=== PATIENT | male | born 1940 | race Caucasian/White ===

== ENCOUNTER 2018-08-03 09:10 | Inpatient (IN) | payer MEDICARE ==
[2018-08-03 09:56] LABS: #Eosinphils 0.4 thou/uL (0.0-0.7); #Lymphocytes 2.3 thou/uL (1.20-3.40); #Neutrophils 7.7 thou/uL (1.40-6.50); %Basophils 0.4 % (0.0-1.0); %Eosinophils 3.5 % (0.0-10.0); %Lymphocytes 20.3 % (21.0-51.0); %Monocytes 8.5 % (0.0-10.0); %Neutrophils 67.4 % (42.0-75.0); Mean Corpuscular Volume 81.1 fL (78.0-98.0); Platelet Count 170 thou/uL (130-400); RBC Distribution Width 16.6 % (11.5-14.5); White Blood Cell (WBC) Count 11.4 thou/uL (4.8-10.8)
[2018-08-03 10:14] LABS: ALT (SGPT) 18 U/L (8-55); AST (SGOT) 25 U/L (5-34); Albumin 3.5 g/dL (3.4-4.8); Alkaline Phosphatase 82 U/L (40-150); Anion Gap 14 mmol/L (10-20); BUN (Urea Nitrogen) 23 mg/dL (8.4-25.7); Calc. Creatinine Clearance 0 mL/min (70-130); Calcium 9.2 mg/dL (7.8-10.44); Carbon Dioxide 26 mmol/L (23-31); Chloride 101 mmol/L (98-107); Estimated GFR-MDRD Greater than 90; Globulin 4.3 g/dL (2.4-3.5); Glucose 89 mg/dL (83-110); Potassium 3.8 mmol/L (3.5-5.1); Protein, Total 7.8 g/dL (5.8-8.1); Sodium 137 mmol/L (136-145)
--- NOTE | 2018-08-03 10:32 | RAD ---
FRONTAL VIEW CHEST: Comparison: 08-09-17 Clinical indication: Dyspnea, shortness of breath. FINDINGS: There is enlargement of the cardiac silhouette and pulmonary vasculature. Mild pleural based density at the inferior right chest may be related to small amount of pleural fluid. Dual-lead left subclavia n approach cardiac device again seen. IMPRESSION: 1. Evidence of CHF. 2. Small right pleural effusion. 3. Recommend follow up to resultion. POS: SOFIA
[2018-08-03 10:34] LABS: CKMB 1.7 ng/mL (0-6.6)
[2018-08-03] MEDS ORDERED: Furosemide 40 MG/4 ML VIAL ONE (10:57)
[2018-08-03] MEDS ORDERED: Aspirin 325 MG TAB ONE (10:57)
[2018-08-03 12:47] LABS: Troponin I 0.033 ng/mL (< 0.028)
[2018-08-03 14:03] VITALS: BMI 32.8
[2018-08-03] MEDS ORDERED: Acetaminophen 325 MG TAB PO PRN (15:11)
[2018-08-03] MEDS ORDERED: Dextrose 50% Abboject 50 ML SYRINGE SLOW IVP PRN (15:11)
[2018-08-03] MEDS ORDERED: Dextrose 5% in Water 1,000 ML IV PRN (15:11)
[2018-08-03] MEDS ORDERED: Ondansetron ODT 4 MG TAB PO PRN (15:11)
[2018-08-03] MEDS ORDERED: Insulin Regular 300 UNITS/3 ML VIAL SC PRN (15:11)
[2018-08-03] MEDS ORDERED: Bisacodyl 5 MG TAB PO PRN (15:20)
[2018-08-03 15:27] LABS: Troponin I 0.032 ng/mL (< 0.028)
[2018-08-03] MEDS ORDERED: Meclizine HCl 25 MG TAB PO SCH (16:00)
[2018-08-03] MEDS: Insulin Regular 300 UNITS/3 ML VIAL SC SCH (17:03)
[2018-08-03] MEDS: Famotidine 20 MG TAB PO SCH (20:55)
[2018-08-03] MEDS: Docusate 100 MG CAP PO SCH (20:56)
[2018-08-03] MEDS ORDERED: Digoxin 0.125 MG TAB PO SCH (21:00)
[2018-08-03] MEDS: Insulin Glargine 80 UNITS in Pre-Filled Syringe 1 EACH SC SCH (21:05)
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
--- NOTE | 2018-08-04 02:06 | CON ---
DATE OF CONSULTATION: 08/03/2018 REASON FOR CONSULTATION: Congestive heart failure. HISTORY OF PRESENT ILLNESS: Mr. Johnson is a 78-year-old gentleman with history of pacemaker insertion and apparently atrial fibrillation. I have been consulted for heart failure. Mr. Johnson states that many years ago, he had syncopal episodes and was found to have periods of asystole. He underwent pacemaker insertion. A couple of years ago, he was re-evaluated and was found have normal left ventricular function on echocardiogram and had a pacemaker generator change. He has done well since then up until the last few weeks he has been progressively short of breath and difficulty sleeping at night due to difficulty breathing and to sit up to breathe. Finally came to the hospital, where he was found to be in heart failure. He has received diuretics and is feeling much better already. HOME MEDICATIONS: 1. Triamterene hydrochlorothiazide. 2. Diltiazem CD 180 mg a day. 3. Digoxin 0.125 mg a day. 4. Pradaxa. Per report, taking 110 mg capsules 2 a day in the morning. 5. Insulin. ALLERGIES: NIACIN. SOCIAL HISTORY: No alcohol or tobacco. PAST MEDICAL HISTORY: History of polio as a child. 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 Still able to exert, but unable to exert himself as heavily and unable to compete like he could before. Other past history, diabetes. PHYSICAL EXAMINATION: GENERAL: This is a pleasant elderly gentleman, in no distress. VITAL SIGNS: Blood pressure 140/64, pulse 70, it is regular. EYES: Sclerae nonicteric. MOUTH: Mucous membranes moist. NECK: Supple. No lymphadenopathy. LUNGS: Clear. No wheezing, rales, or rhonchi. CARDIAC: Normal S1, normal S2. There is no murmur, rub, or gallop. ABDOMEN: Soft, nontender. EXTREMITIES: No clubbing or cyanosis, but he has some moderate peripheral edema that is chronic. He has good femoral pulse. PERTINENT LABORATORY DATA: BNP was up slightly 138.5. Troponin is indeterminate at 0.032. Hemoglobin 13. Chest x-ray revealed cardiomegaly with pulmonary vascular congestion. There is a dual lead pacemaker. EKG shows ventricular pacing primarily with occasional atrial pacing, but it is difficult to tell this may all be atrial fibrillation. ASSESSMENT: 1. Congestive heart failure. Unknown if it is systolic or diastolic yet, maybe systolic with a diastolic component mixed. 2. Previous pacemaker insertion. 3. Previous polio. 4. Diabetes. PLAN: 1. Change from diltiazem to carvedilol. 2. Interrogate the pacemaker. 3. Add GWENDOLYN inhibitor. 4. He is on diuretics. 5. Will likely need cardiac catheterization in this admission. We will follow with you. Job ID: [id number]
[2018-08-04 05:33] LABS: #Eosinphils 0.4 thou/uL (0.0-0.7); #Monocytes 1.1 thou/uL (0.11-0.59); #Neutrophils 7.3 thou/uL (1.40-6.50); %Basophils 0.2 % (0.0-1.0); %Eosinophils 3.3 % (0.0-10.0); %Lymphocytes 18.6 % (21.0-51.0); %Monocytes 10.5 % (0.0-10.0); %Neutrophils 67.4 % (42.0-75.0); Hemoglobin 12.4 g/dL (14.0-18.0); Mean Corpuscular HGB CONC 32.4 g/dL (32.0-36.0); Mean Corpuscular Hemoglobin 26.2 pg (27.0-31.0); Mean Corpuscular Volume 80.8 fL (78.0-98.0); Mean Platelet Volume 7.8 fL (7.4-10.4); Platelet Count 179 thou/uL (130-400); RBC Distribution Width 16.4 % (11.5-14.5); Red Blood Cell (RBC) Count 4.73 mill/uL (4.70-6.10); White Blood Cell (WBC) Count 10.9 thou/uL (4.8-10.8)
[2018-08-04 05:38] LABS: INR-International Normal Ratio 1.3; PTT 44.8 SEC (22.9-36.1); Prothrombin Time 16.3 SEC (12.0-14.7)
[2018-08-04 05:54] LABS: Anion Gap 12 mmol/L (10-20); BUN (Urea Nitrogen) 20 mg/dL (8.4-25.7); Calc. Creatinine Clearance 112 mL/min (70-130); Calcium 9.1 mg/dL (7.8-10.44); Carbon Dioxide 29 mmol/L (23-31); Chloride 101 mmol/L (98-107); Estimated GFR-MDRD Greater than 90; Glucose 72 mg/dL (83-110); Potassium 3.4 mmol/L (3.5-5.1); Sodium 139 mmol/L (136-145)
--- NOTE | 2018-08-04 07:22 | PDOC.PN ---
- Subjective Encounter Start Date: 08/04/18 Encounter Start Time: 14:00 Subjective: Patient reports no more SOB. No orthopnea. Ambulating well. - Objective Resuscitation Status - Order Detail: 08/03/18 15:01 Resuscitation Status Routine Resuscitation Status: FULL: Full Resuscitation Discussed with: Patient MOMO Reviewed: Yes Vital Signs & Weight: Vital Signs (12 hours) Temp Pulse Resp BP Pulse Ox 08/04/18 04:00 97.9 F 69 20 133/60 93 L 08/04/18 00:00 98.9 F 70 18 154/67 H 95 08/03/18 20:55 84 08/03/18 20:00 98.7 F 74 19 131/60 95 Weight Weight 229 lb 14.4 oz I&O: 08/03/18 08/04/18 08/05/18 06:59 06:59 06:59 Intake Total 690 Output Total 1615 Balance -925 Result Diagrams: 08/04/18 05:15 08/04/18 05:15 Additional Labs: Accuchecks 08/04/18 06:03 POC Glucose 111 H Phys Exam - Physical Examination Constitutional: NAD HEENT: moist MMs Respiratory: no wheezing, no rhonchi mild bibasilar rales Cardiovascular: RRR, no significant murmur Gastrointestinal: soft, positive bowel sounds Musculoskeletal: edema present minimal edema Neurological: non-focal, moves all 4 limbs Psychiatric: normal affect, A&O x 3 Dx/Plan (1) New onset of congestive heart failure Code(s): I50.9 - HEART FAILURE, UNSPECIFIED Status: Acute Comment: ECHO pending, Dr. Reyez consulted, adding Coreg, GWENDOLYN-I, and IV Lasix. Possible cath depending on the ECHO results. (2) Atrial fibrillation Code(s): I48.91 - UNSPECIFIED ATRIAL FIBRILLATION Status: Chronic Comment: on Pradaxa (3) Complete heart block Code(s): I44.2 - ATRIOVENTRICULAR BLOCK, COMPLETE Status: Chronic Comment: previous pacemaker insertion (4) Diabetes mellitus, insulin dependent (IDDM), controlled Code(s): E11.9 - TYPE 2 DIABETES MELLITUS WITHOUT COMPLICATIONS; Z79.4 - JAIL (CURRENT) USE OF INSULIN Status: Chronic Comment: on large amounts of Lantus and short acting insulin twice per day - Plan cont current plan of care Appreciate Dr. Reyez's imput on this patient * . - Discharge Day Encounter end time: 14:20
[2018-08-04] MEDS: Insulin Regular 300 UNITS/3 ML VIAL SC SCH ×2 (08:06→16:06)
[2018-08-04] MEDS: Folic Acid 1 MG TAB PO SCH (08:07)
[2018-08-04] MEDS: Famotidine 20 MG TAB PO SCH ×3 (08:07→21:01)
[2018-08-04] MEDS: Insulin Glargine 80 UNITS in Pre-Filled Syringe 1 EACH SC SCH ×2 (08:07→21:02)
[2018-08-04] MEDS: Docusate 100 MG CAP PO SCH ×2 (08:08→21:02)
[2018-08-04] MEDS: Lisinopril 5 MG TAB PO SCH (08:08)
[2018-08-04] MEDS: Fish Oil 1,000 MG CAP PO SCH (08:08)
[2018-08-04] MEDS: Loratadine 10 MG TAB PO SCH (08:08)
[2018-08-04] MEDS: Meclizine HCl 25 MG TAB PO SCH (08:08)
[2018-08-04] MEDS: Carvedilol 25 MG TAB PO SCH ×2 (08:08→16:40)
[2018-08-04] MEDS: Fluticasone Propionate Nasal Spray 16 gm Bottle NASAL SCH (08:11)
[2018-08-04] MEDS ORDERED: Furosemide 40 MG/4 ML VIAL SLOW IVP SCH (09:00)
[2018-08-04] MEDS ORDERED: Digoxin 0.125 MG TAB PO SCH (09:00)
[2018-08-04] MEDS ORDERED: Furosemide 20 MG/2 ML VIAL SLOW IVP SCH (18:15)
[2018-08-04] MEDS ORDERED: Potassium Chloride 20 MEQ TAB PO SCH (18:15)
[2018-08-04] MEDS ORDERED: Spironolactone 25 MG TAB PO SCH (18:15)
--- NOTE | 2018-08-04 19:32 | PRG ---
DATE OF SERVICE: 08/04/2018 SUBJECTIVE: Mr. Johnson is feeling much better now. His edema is improved. His breathing is much better. OBJECTIVE: VITAL SIGNS: His blood pressure 133/60, pulse 70s and regular. LUNGS: Clear. CARDIAC: Normal S1 and normal S2. ABDOMEN: Soft and nontender. EXTREMITIES: Edema is reduced. DIAGNOSTIC DATA: The pacemaker is interrogated today. The atrial lead was not capturing. It was readjusted, so it is now capturing. ASSESSMENT: Congestive heart failure, possibly contributed by non-capturing atrial lead. PLAN: Stress test to be done tomorrow. He says he had trouble with chemical stress test tomorrow; therefore, we will use [employer]. Hopefully home tomorrow if the patient is doing okay. Job ID: [id number]
[2018-08-05] MEDS ORDERED: Furosemide 40 MG/4 ML VIAL SLOW IVP SCH (06:00)
[2018-08-05 06:57] LABS: Anion Gap 15 mmol/L (10-20); BUN (Urea Nitrogen) 24 mg/dL (8.4-25.7); Calc. Creatinine Clearance 104 mL/min (70-130); Calcium 9.1 mg/dL (7.8-10.44); Carbon Dioxide 25 mmol/L (23-31); Chloride 100 mmol/L (98-107); Estimated GFR-MDRD Greater than 90; Glucose 104 mg/dL (83-110); Potassium 4.1 mmol/L (3.5-5.1); Sodium 136 mmol/L (136-145)
--- NOTE | 2018-08-05 07:37 | PDOC.PN ---
- Subjective Encounter Start Date: 08/05/18 Encounter Start Time: 10:00 Subjective: Patient reports no more SOB. No cough. No chest pain. - Objective Resuscitation Status - Order Detail: 08/03/18 15:01 Resuscitation Status Routine Resuscitation Status: FULL: Full Resuscitation Discussed with: Sharmila BARR Reviewed: Yes Vital Signs & Weight: Vital Signs (12 hours) Temp Pulse Resp BP Pulse Ox 08/05/18 03:00 97.6 F 70 20 111/54 L 94 L 08/04/18 20:05 98.0 F 66 18 118/62 95 Weight Weight 215 lb 14.4 oz I&O: 08/04/18 08/05/18 08/06/18 06:59 06:59 06:59 Intake Total 690 1440 Output Total 1615 2280 Balance -925 -840 Result Diagrams: 08/04/18 05:15 08/05/18 05:48 Additional Labs: Accuchecks 08/05/18 08/05/18 08/05/18 05:19 03:06 02:36 POC Glucose 110 74 44 L* 08/04/18 08/04/18 08/04/18 20:27 17:21 11:03 POC Glucose 194 H 104 116 H Phys Exam - Physical Examination Constitutional: NAD HEENT: moist MMs Respiratory: no wheezing, no rhonchi occ rales bilaterally Cardiovascular: RRR, no significant murmur Gastrointestinal: soft, positive bowel sounds Musculoskeletal: no edema Neurological: non-focal, moves all 4 limbs Psychiatric: normal affect, A&O x 3 Dx/Plan (1) New onset of congestive heart failure Code(s): I50.9 - HEART FAILURE, UNSPECIFIED Status: Acute Comment: Dr. Reyez consulted, adding Coreg, GWENDOLYN-I, and IV Lasix. ECHO with normal EF. Plan for stress test today. 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 - Discharge Day Encounter end time: 10:15
[2018-08-05] MEDS ORDERED: Spironolactone 25 MG TAB PO SCH (08:00)
[2018-08-05] MEDS: Insulin Regular 300 UNITS/3 ML VIAL SC SCH (09:47)
[2018-08-05] MEDS: Carvedilol 25 MG TAB PO SCH ×2 (09:47→17:57)
[2018-08-05] MEDS: Insulin Glargine 80 UNITS in Pre-Filled Syringe 1 EACH SC SCH (09:48)
[2018-08-05] MEDS: Lisinopril 5 MG TAB PO SCH (09:57)
[2018-08-05] MEDS: Loratadine 10 MG TAB PO SCH (09:57)
[2018-08-05] MEDS: Docusate 100 MG CAP PO SCH (09:57)
[2018-08-05] MEDS: Fish Oil 1,000 MG CAP PO SCH (09:57)
[2018-08-05] MEDS: Folic Acid 1 MG TAB PO SCH (09:57)
[2018-08-05] MEDS: Fluticasone Propionate Nasal Spray 16 gm Bottle NASAL SCH (09:58)
[2018-08-05] MEDS: Famotidine 20 MG TAB PO SCH (09:58)
[2018-08-05] MEDS: Meclizine HCl 25 MG TAB PO SCH (09:58)
[2018-08-05] MEDS ORDERED: Insulin Regular 300 UNITS/3 ML VIAL SC SCH (16:30)
[2018-08-05 17:55] VITALS: TEMP 98.9
--- NOTE | 2018-08-05 18:04 | PRG ---
DATE OF SERVICE: 08/05/2018 SUBJECTIVE: Mr. Johnson is still down in the stress area, waiting for the results of the stress test. If the stress test is normal, it is okay with me for him to go home on the current medical regimen, which includes furosemide 40 mg a day, spironolactone 25 mg a day, carvedilol 12.5 mg twice a day, and lisinopril 5 mg a day. We have taking him off digoxin, we have taken him off diltiazem. Also during this admission, we increased the atrial output and the leads from the atrium and the atrial lead is now capturing. If he goes home, he should go back on the previous dose of Pradaxa. If he has abnormal stress test, Dr. Ureña is available this weekend to consider catheterization on Wednesday. Job ID: [id number]
--- NOTE | 2018-08-05 20:00 | NM ---
NUCLEAR MEDICINE CARDIAC STRESS EF AND WALL MOTION: 07/26/18 HISTORY: Chest pain. COMPARISON: None. FINDINGS: There is homogeneous distribution of the radiotracer in the nonattenuated stress images. No reversibi lity or fixed defect. TID is 0.90. End diastolic volume is 116 mL. End systolic volume is 52 mL. CARDIAC GATING: There is normal wall motion and thickening. 52% ejection fraction. IMPRESSION: 1. No reversibility. No fixed defect. 2. 52% ejection fracture. POS: SOFIA
[2018-08-05 23:26] VITALS: BP 133/63
[2018-08-06] MEDS ORDERED: Furosemide 40 MG TAB PO SCH (07:30)
--- NOTE | 2018-08-06 14:57 | STRESS ---
Acquisition Time: 2018-08-05 14:03:36 Total Exercise Time: 00:01:00 Test Indications: CHEST PAIN Medications: Protocol: LEXISCAN Max HR: 075 BPM 53% of Pred: 141 BPM Max BP: 138/070 mmHG Max Work Load: 1.0 METS RESTING ECG: PACED RHYTHM AT 70BPM SYMPTOMS: DYSPNEA NORMAL BP RESPONSE ECTOPY: NONE ECG STRESS: NO SIGNIFICANT CHANGES INTERPRETATION: INDETERMINATE ECG/AWAIT NUCLEAR IMAGES FOR DEFINITIVE DIAGNOSIS Confirmed by GINA RAZO ELLEN ([id number]) on 08/06/2018 2:57:18 PM Referred By: MD Sully WISDOM Confirmed By:HUBER RAZO PA-C
--- NOTE | 2018-08-07 09:40 | DIS ---
DATE OF ADMISSION: 08/03/2018 DATE OF DISCHARGE: 08/05/2018 PRIMARY CARE PHYSICIAN: Geoff Rebolledo MD. REASON FOR ADMISSION: 1. New onset congestive heart failure, likely secondary to mechanical failure of one of the leads of his pacemaker, now corrected. 2. Atrial fibrillation, on chronic anticoagulation. 3. Complete heart block with pacemaker in place. 4. Diabetes mellitus type 2, insulin dependent. CONSULTATIONS: Cardiology, Dr. Reyez. PROCEDURES: 1. Echocardiogram showing an ejection fraction of 50% to 55%, mildly increased left ventricular size, mild paradoxical septal wall motion, moderate to severely elevated pulmonary artery pressure, 58 mmHg systolic. Mildly enlarged right ventricular cavity. 2. Nuclear medicine stress test showing no reversible defect and no fixed defects and ejection fraction of 52% on stress test. PERTINENT LABORATORY: Brain natriuretic peptide was 138, troponins were 0.033. SUMMARY OF HOSPITAL COURSE: This is a 78-year-old white male with a known history of insulin-dependent diabetes mellitus as well as atrial fibrillation and sick sinus syndrome requiring pacemaker. He had normal echocardiogram a year ago at the [facility] and for the last six months, he has been gaining weight. Thinks he has been eating too much ice cream. The last 3 to 4 days before admission, he was having increased shortness of breath when he laid down flat. He was also experiencing paroxysmal nocturnal dyspnea. The patient was seen in the emergency room, he did have a positive brain natriuretic peptide, was given dose of Lasix and started to feel a lot better, was able to lay down flat. Dr. eRyez was consulted for Cardiology. He had [employer] failure with pacemaker, one of the atrial leads was actually not capturing and they increased the setting on it and it started to capture well. Echocardiogram was done, which showed normal ejection fraction. At this point, Dr. Reyez ordered a stress test. Stress test came back negative. Sounds like all the symptoms are likely from pacemaker malfunction, which has now been corrected and cleared and discharged home. This really did not alter his medications around for CHF picture. The patient was asymptomatic by the time of discharge. DISCHARGE: Home. FOLLOWUP: Follow up with the CT post anesthesia nurse in 3 to 4 weeks. He also has an appointment on the 3[facility] at [facility] [place]. ACTIVITY: As tolerated. DIET: Diabetic, fluid-restricted diet. MEDICATIONS: 1. Carvedilol 12.5 mg twice a day. 2. Furosemide 40 mg daily. 3. Lisinopril 5 mg daily. 4. Spironolactone 25 mg daily. 5. Lantus insulin 80 units subcu twice a day. 6. NovoLog by sliding scale as before. 7. Fish oil 1000 mg capsule daily. 8. Pradaxa 110 mg two caps daily. 9. Folic acid 0.4 mg daily. 10. Claritin 10 mg daily. 11. Meclizine 25 mg daily as needed. Job ID: [id number]
== END 2018-08-05 22:33 | disposition home or self-care (01) | DRG 308 ==
LOC: ERS 09:10 → ERHOLD 12:18 → 2NO 13:45
PROVIDERS: ADMIT Emergency Medicine; ATTEND Emergency Medicine
DX: T82.190A Other mechanical complication of cardiac electrode, initial encounter (principal); I50.21 Acute systolic (congestive) heart failure; I44.2 Atrioventricular block, complete; E11.9 Type 2 diabetes mellitus without complications; I48.91 Unspecified atrial fibrillation; I49.5 Sick sinus syndrome; Z79.4 Long term (current) use of insulin; Z86.12 Personal history of poliomyelitis; Z95.0 Presence of cardiac pacemaker; Z80.1 Family history of malignant neoplasm of trachea, bronchus and lung
CPT/HCPCS: 36415; 36416; 71045; 78452; 80048; 80053; 82553; 83880; 84484; 85025; 85610; 85730; 93005; 93010; 93017; 93306; 93798; 96374; A9500; J1815; J1940

== ENCOUNTER 2020-02-12 08:41 | Emergency (ER) | payer MEDICARE ==
[2020-02-12] MEDS ORDERED: Lidocaine 1% w/Epinephrine 1:100K 20 ML VIAL ONE (09:02)
[2020-02-12] MEDS ORDERED: Clindamycin/D5W 900 mg/50 ml Premix Bag ONE (09:02)
[2020-02-12] MEDS ORDERED: Fentanyl 100 MCG/2 ML VIAL ONE (09:02)
== END 2020-02-12 10:42 | disposition home or self-care (01) ==
LOC: ERS 08:41
DX: N49.2 Inflammatory disorders of scrotum (principal); E11.9 Type 2 diabetes mellitus without complications; Z79.899 Other long term (current) drug therapy; Z79.891 Long term (current) use of opiate analgesic; Z79.4 Long term (current) use of insulin
CPT/HCPCS: 54700; 96365; 96375; J3010; J3490

== ENCOUNTER 2020-02-14 09:47 | Emergency (ER) | payer MEDICARE | END 2020-02-14 11:12 | disposition home or self-care (01) | LOC: ERS 09:47 | DX: Z48.817 Encounter for surgical aftercare following surgery on the skin and subcutaneous tissue (principal) | CPT/HCPCS: 99282 ==

== ENCOUNTER 2020-05-31 06:26 | Outpatient (CLI) | payer MEDICARE, OTHER ==
[2020-05-31 14:13] LABS: #Eosinphils 0.5 thou/uL (0.0-0.7); #Monocytes 0.9 thou/uL (0.11-0.59); #Neutrophils 5.9 thou/uL (1.40-6.50); %Basophils 0.2 % (0.0-1.0); %Eosinophils 5.2 % (0.0-10.0); %Lymphocytes 29.2 % (21.0-51.0); %Monocytes 8.5 % (0.0-10.0); %Neutrophils 56.9 % (42.0-75.0); Hemoglobin 13.3 g/dL (14.0-18.0); Mean Corpuscular HGB CONC 32.4 g/dL (32.0-36.0); Mean Corpuscular Hemoglobin 29.1 pg (27.0-31.0); Mean Corpuscular Volume 89.6 fL (78.0-98.0); Mean Platelet Volume 7.5 fL (7.4-10.4); Platelet Count 180 thou/uL (130-400); RBC Distribution Width 13.4 % (11.5-14.5); Red Blood Cell (RBC) Count 4.57 mill/uL (4.70-6.10); White Blood Cell (WBC) Count 10.3 thou/uL (4.8-10.8)
[2020-06-01 11:58] LABS: SARS-CoV-2 MS2 Positive; SARS-CoV-2 N Gene Negative; SARS-CoV-2 S Gene Negative; SARS-CoV-2 by NAA Not Detected (NotDetected); SARS-CoV-2 orf1ab Negative
== END 2020-05-31 06:27 | disposition home or self-care (01) ==
LOC: LABBT 06:26
PROVIDERS: ATTEND Internal Medicine Gastroenterology
DX: Z01.812 Encounter for preprocedural laboratory examination (principal); R13.10 Dysphagia, unspecified; G14 Postpolio syndrome; I48.91 Unspecified atrial fibrillation; Z86.010 Personal history of colon polyps; Z20.828 Contact with and (suspected) exposure to other viral communicable diseases
CPT/HCPCS: 85025; U0003; 87635

== ENCOUNTER 2020-06-05 06:03 | Day surgery (SDC) | payer MEDICARE ==
[2020-06-05] MEDS ORDERED: Ketamine 50 MG/ML (10ML VIAL) ONE (08:09)
--- NOTE | 2020-06-05 09:51 | OP ---
DATE OF PROCEDURE: 06/05/2020 PROCEDURES PERFORMED: 1. Esophagogastroduodenoscopy with dilatation. 2. Colonoscopy. PREPROCEDURE DIAGNOSES: 1. Prior history of colon polyps. 2. Cervical dysphagia. 3. Mild anemia. 4. Chronic anticoagulation. POSTPROCEDURE DIAGNOSES: 1. Normal esophagogastroduodenoscopy. Empiric dilatation with a 54-[place] Vieira dilator was performed with no effect on second look. Suspect his dysphagia is more related to his postpolio syndrome and oropharyngeal dysphagia. His coping mechanisms are used to deal with this and has not had any issues with aspiration pneumonia. 2. Small hiatal hernia with no evidence of esophagitis or Manning's or stricture. 3. Normal colonoscopy. ANESTHESIA: TIVA. MEDICATIONS: Pradaxa was held for 2 days prior to the procedure. RECOMMENDATIONS: 1. Can resume Pradaxa and other medications. 2. At present age, would not advise further screening colonoscopy as he has had diminutive polyps in 2014 and on this exam. 3. Follow up in office p.r.n. DESCRIPTION OF PROCEDURE: After the patient was informed of the risks, benefits, and possible complications of endoscopy including perforation, bleeding, and reaction to medication, informed consent was obtained. The patient was brought to the endoscopy suite where he was sedated in gradual fashion. Once he was comfortable, a bite block was placed in the incisural orifice. The endoscope was advanced in the esophagus, stomach, and second and third portions of the duodenum and was slowly removed. There was good visualization of the mucosa. There was no evidence of esophageal lesions to account for dysphagia. There was easy passage of the scope. The stomach was found to be normal in forward and retroflexed views as was the duodenum to the third portion. The scope was removed and an empiric dilatation was performed with 54-[place] Vieira dilator with minimal resistance. Second-look showed no effect on dilation. The scope was removed. The patient was turned in the room and rectal examination was performed. The endoscope was advanced from the anal canal through the colon to the cecum. He had colonoscopy in 2013, had a poor prep. This had a very good prep. There were a few diverticula in the ascending and descending colon. There were no recurrent polyps, masses, or lesions. Retroflexed views revealed small internal hemorrhoids, nonbleeding. The scope was removed. The patient tolerated the procedures well. There were no complications. Job ID: [id number]
[2020-06-05] MEDS ORDERED: PHENYLEPHRINE-NS 100 MCG/ML 10 ML SYRINGE ONE (10:55)
[2020-06-05] MEDS ORDERED: Lidocaine 1% PF 5 ML VIAL ONE (10:55)
[2020-06-05] MEDS ORDERED: PROPOFOL 200 MG/20 ML VIAL ONE (10:55)
== END 2020-06-05 09:55 | disposition home or self-care (01) ==
LOC: SDC 06:03
PROVIDERS: ATTEND Internal Medicine Gastroenterology
PROC: 0DJD8ZZ Inspection of Lower Intestinal Tract, Via Natural or Artificial Opening Endoscopic (ICD-10-PCS; principal; 2020-06-05)
PROC: 0DJ08ZZ Inspection of Upper Intestinal Tract, Via Natural or Artificial Opening Endoscopic (ICD-10-PCS; 2020-06-05)
PROC: 0D758DZ Dilation of Esophagus with Intraluminal Device, Via Natural or Artificial Opening Endoscopic (ICD-10-PCS; 2020-06-05)
DX: Z12.11 Encounter for screening for malignant neoplasm of colon (principal); K64.8 Other hemorrhoids; K44.9 Diaphragmatic hernia without obstruction or gangrene; D64.9 Anemia, unspecified; R13.10 Dysphagia, unspecified; Z86.010 Personal history of colon polyps; Z88.8 Allergy status to other drugs, medicaments and biological substances
CPT/HCPCS: 43235; 43450; 93005; G0121; 93010; J2704

== ENCOUNTER 2023-04-19 19:54 | Emergency (ER) | payer MEDICARE ==
[2023-04-19] MEDS ORDERED: Cephalexin 250 MG CAP ONE (21:06)
== END 2023-04-19 21:15 | disposition home or self-care (01) ==
LOC: ERS 19:54
DX: S80.212A Abrasion, left knee, initial encounter (principal); S80.211A Abrasion, right knee, initial encounter; L03.116 Cellulitis of left lower limb; E11.9 Type 2 diabetes mellitus without complications; W18.30XA Fall on same level, unspecified, initial encounter
CPT/HCPCS: 99283

== ENCOUNTER 2024-09-19 11:16 | Outpatient (CLI) | payer MEDICARE | END 2024-09-19 11:17 | disposition home or self-care (01) | LOC: BICRAD 11:16 | PROVIDERS: ATTEND Family Medicine | DX: R05.1 Acute cough (principal); J98.11 Atelectasis | CPT/HCPCS: 71046 ==

== ENCOUNTER 2024-09-20 14:13 | Emergency (ER) | payer MEDICARE ==
[2024-09-20 15:00] LABS: #Basophils 0.03 10x3/uL (0.0-0.2); %Basophils 0.3 % (0.0-1.0); %Eosinophils 2.9 % (0.0-10.0); %Lymphocytes 13.4 % (21.0-51.0); %Monocytes 9.3 % (0.0-10.0); %Neutrophils 73.4 % (42.0-75.0); Hematocrit 37.2 % (42.0-52.0); Hemoglobin 11.7 g/dL (14.0-18.0); Mean Corpuscular HGB CONC 31.5 g/dL (32.0-36.0); Mean Corpuscular Hemoglobin 26.2 pg (27.0-31.0); Mean Corpuscular Volume 83.4 fL (78.0-98.0); Mean Platelet Volume 8.5 fL (7.4-10.4); Platelet Count 268 10x3/uL (130-400); RBC Distribution Width 14.6 % (11.5-14.5); Red Blood Cell (RBC) Count 4.46 mill/uL (4.70-6.10)
[2024-09-20 15:23] LABS: ALT (SGPT) 10 U/L (Less than 45); AST (SGOT) 26 U/L (11-34); Albumin 2.4 g/dL (3.1-4.5); Alkaline Phosphatase 114 U/L (40-110); Anion Gap 12 mmol/L (10-20); BUN (Urea Nitrogen) 14 mg/dL (8.4-25.7); Bilirubin, Total 2.1 mg/dL (0.3-1.2); Calc. Creatinine Clearance 0 mL/min (70-130); Calcium 8.6 mg/dL (7.8-10.44); Carbon Dioxide 27 mmol/L (23-31); Chloride 100 mmol/L (98-107); Estimated GFR 96; Glucose 114 mg/dL (83-110); Potassium 3.1 mmol/L (3.5-5.1); Protein, Total 7.4 g/dL (5.8-8.1); Sodium 136 mmol/L (136-145)
[2024-09-20 15:24] LABS: Troponin I Less than 0.010 ng/mL (< 0.028)
[2024-09-20] MEDS ORDERED: Furosemide 40 MG (4 mL) VIAL ONE (17:31)
== END 2024-09-20 19:01 | disposition home or self-care (01) ==
LOC: ERS 14:13
DX: R06.02 Shortness of breath (principal); R05.9 Cough, unspecified; E87.70 Fluid overload, unspecified; E11.9 Type 2 diabetes mellitus without complications; I50.30 Unspecified diastolic (congestive) heart failure
CPT/HCPCS: 71045; 80053; 83880; 84484; 85025; 87428; 93005; J1940; 36415; 96374